=== PATIENT | male | born 1970 | race Caucasian/White ===

== ENCOUNTER 2017-12-28 18:20 | Emergency (ER) | payer SELFPAY ==
[2017-12-28] MEDS ORDERED: Sodium Chloride 0.9% 10 ML Syringe FLUSH PRN (18:27)
[2017-12-28] MEDS ORDERED: Metoprolol Tartrate 50 MG Tab PO ONE (18:29)
[2017-12-28] MEDS ORDERED: Aspirin 81 MG Tab.Chew PO ONE (18:29)
--- NOTE | 2017-12-28 18:31 | EDM.PDOC ---
ED HPI GENERAL MEDICAL PROBLEM - General Chief Complaint: Chest Pain Stated Complaint: CHEST PRESSURE,ELEVATED PULSE Time Seen by Provider: 12/28/17 18:20 Source of Information: Reports: Patient History Limitations: Reports: Other (incomplete medical records, new in area. ) - History of Present Illness INITIAL COMMENTS - FREE TEXT/NARRATIVE: 47 yo male presents with symptomatic tachycardia since about 9 am today. This started abruptly. He has a little chest tightness, but mostly he says it feels like he is running. Has a pHx of HTN and tachycardia controlled with lisinopril and metoprolol. He has not missed any of his meds. Did notice some tenderness to the back of his L thigh about an hour ago. No distal leg swelling or calf pain. No SOB at rest, but does have mild SMITH today. No recent vomiting, diarrhea, black stools, or anemia. Has not had his thyroid checked in the past 6 mos. FHx of CAD. Onset: Today Onset Date: 12/28/17 Onset Time: 09:00 Duration: Hour(s):, Constant Location: Reports: Chest, Lower Extremity, Left (posterior thigh) Quality: Reports: Other (mild chest tightness.) Severity: Mild Improves with: Reports: None Worsens with: Reports: Movement Context: Reports: Other (hx of tachycardia controlled with low dose metoprolol. No missed meds. 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 (see below) (usual meds only.) Chest Pain Score (Numeric/FACES): 8 - Related Data Allergies Allergy/AdvReac Type Severity Reaction Status Date / Time codeine Allergy Itching Verified 12/28/17 18:25 Home Meds: Home Meds Amitriptyline [Elavil] 50 mg PO DAILY 12/28/17 [History] Cholecalciferol (Vitamin D3) [Vitamin D3] 2,000 unit PO DAILY 12/28/17 [History] Fish Oil/DHA/EPA [Fish Oil 1,200 MG] 1 tab PO DAILY 12/28/17 [History] Gabapentin [Neurontin] 300 mg PO TID 12/28/17 [History] Lisinopril 20 mg PO DAILY 12/28/17 [History] Melatonin 10 mg PO BEDTIME 12/28/17 [History] Metoprolol Succinate 25 mg PO DAILY 12/28/17 [History] Simvastatin [Zocor] 40 mg PO DAILY 12/28/17 [History] Tamsulosin [Flomax] 0.4 mg PO DAILY 12/28/17 [History] ED ROS GENERAL - Review of Systems Review Of Systems: See Below Constitutional: Reports: No Symptoms HEENT: Reports: No Symptoms Respiratory: Reports: Shortness of Breath (with exertion only) Cardiovascular: Reports: Chest Pain (mild tightness.) Endocrine: Reports: No Symptoms GI/Abdominal: Reports: Other (Hx of anal fissure.) : Reports: No Symptoms Musculoskeletal: Reports: No Symptoms Skin: Reports: No Symptoms Neurological: Reports: No Symptoms Psychiatric: Reports: No Symptoms ED EXAM, GENERAL - Physical Exam Exam: See Below Exam Limited By: No Limitations General Appearance: Alert, WD/WN, No Apparent Distress, Obese Eye Exam: Bilateral Eye: EOMI, Normal Inspection, PERRL Ears: Normal External Exam, Normal Canal, Hearing Grossly Normal, Normal TMs Ear Exam: Bilateral Ear: Auricle Normal, Canal Normal, TM normal Nose: Normal Inspection, Normal Mucosa, No Blood Throat/Mouth: Normal Inspection, Normal Lips, Normal Oropharynx, Normal Voice, No Airway Compromise Head: Atraumatic, Normocephalic Neck: Normal Inspection, Supple, Non-Tender Respiratory/Chest: No Respiratory Distress, Lungs Clear, Normal Breath Sounds, No Accessory Muscle Use Cardiovascular: Regular Rate, Rhythm, Tachycardia GI/Abdominal: Normal Bowel Sounds, Soft, Non-Tender, No Distention Back Exam: Normal Inspection. No: CVA Tenderness (R), CVA Tenderness (L) Extremities: Normal Inspection, Normal Range of Motion, Non-Tender, No Pedal Edema Neurological: Alert, Oriented, CN II-XII Intact, Normal Cognition, No Motor/ Sensory Deficits Psychiatric: Normal Affect, Normal Mood Skin Exam: Warm, Dry, Intact, Normal Color, No Rash Lymphatic: No Adenopathy EKG INTERPRETATION EKG Date: 12/28/17 Time: 18:15 Rhythm: NSR Rate (Beats/Min): 123 [place]: Normal P-Wave: Present QRS: Normal ST-T: Normal QT: Normal Comparison: NA - No Prior EKG Course - Vital Signs Text/Narrative:: HR down to 88 and BP down to 130/90. Feeling back to normal. Last Recorded V/S: Last Vital Signs Temp 36.6 C 12/28/17 18:29 Pulse 106 H 12/28/17 19:38 Resp 11 L 12/28/17 19:38 BP 131/90 12/28/17 19:56 Pulse Ox 96 12/28/17 18:29 - Orders/Labs/Meds Orders: Active Orders 24 hr Category Date Time Status Cardiac Monitoring [RC] .As Directed Care 12/28/17 18:27 Active EKG Documentation Completion [RC] ASDIRECTED Care 12/28/17 18:27 Active UA W/MICROSCOPIC [URIN] Stat Lab 12/28/17 18:47 Ordered Sodium Chloride 0.9% [Saline Flush] Med 12/28/17 18:27 Active 10 ml FLUSH ASDIRECTED PRN Saline Lock Insert [OM.PC] Routine Oth 12/28/17 18:27 Ordered EKG 12 Lead [EK] Routine Ther 12/28/17 18:27 Ordered Medication Orders Sodium Chloride (Saline Flush) 10 ml FLUSH ASDIRECTED PRN PRN Reason: Keep Vein Open Last Admin: 12/28/17 18:46 Dose: 10 ml Labs: Laboratory Tests 12/28/17 12/28/17 12/28/17 Range/Units 18:31 18:31 18:31 WBC 9.2 (4.5-11.0) K/uL RBC 5.14 (4.30-5.90) M/uL Hgb 15.3 H (12.0-15.0) g/dL Hct 43.4 (40.0-54.0) % MCV 84 (80-98) fL MCH 30 (27-31) pg MCHC 35 (32-36) % Plt Count 317 (150-400) K/uL D-Dimer, Quantitative < 100 (0.0-400.0) ng/mL Sodium 141 (140-148) mmol/L Potassium 4.1 (3.6-5.2) mmol/L Chloride 103 (100-108) mmol/L Carbon Dioxide 27 (21-32) mmol/L Anion Gap 10.6 (5.0-14.0) mmol/L BUN 9 (7-18) mg/dL Creatinine 1.2 (0.8-1.3) mg/dL Est Cr Clr Drug Dosing 79.31 mL/min Estimated GFR (MDRD) > 60 (>60) Glucose 119 H (74-106) mg/dL Calcium 8.8 (8.5-10.1) mg/dL Troponin I < 0.017 (0.000-0.056) ng/mL TSH, Ultra Sensitive (0.358-3.740) uIU/mL Urine Color Urine Appearance Urine pH (4.5-8.0) Ur Specific [place] (1.008-1.030) Urine Protein (NEGATIVE) mg/dL Urine Glucose (UA) (NEGATIVE) mg/dL Urine Ketones (NEGATIVE) mg/dL Urine Occult Blood (NEGATIVE) Urine Nitrite (NEGAITVE) Urine Bilirubin (NEGATIVE) Urine Urobilinogen (NORMAL) mg/dL Ur Leukocyte Esterase (NEGATIVE) Urine RBC (0-5) Urine WBC (0-5) Ur Epithelial Cells Amorphous Sediment Urine Bacteria Urine Mucus 12/28/17 12/28/17 Range/Units 18:31 18:47 WBC (4.5-11.0) K/uL RBC (4.30-5.90) M/uL Hgb (12.0-15.0) g/dL Hct (40.0-54.0) % MCV (80-98) fL MCH (27-31) pg MCHC (32-36) % Plt Count (150-400) K/uL D-Dimer, Quantitative (0.0-400.0) ng/mL Sodium (140-148) mmol/L Potassium (3.6-5.2) mmol/L Chloride (100-108) mmol/L Carbon Dioxide (21-32) mmol/L Anion Gap (5.0-14.0) mmol/L BUN (7-18) mg/dL Creatinine (0.8-1.3) mg/dL Est Cr Clr Drug Dosing mL/min Estimated GFR (MDRD) (>60) Glucose (74-106) mg/dL Calcium (8.5-10.1) mg/dL Troponin I (0.000-0.056) ng/mL TSH, Ultra Sensitive 2.714 (0.358-3.740) uIU/mL Urine Color Yellow Urine Appearance Clear Urine pH 5.0 (4.5-8.0) Ur Specific [place] 1.010 (1.008-1.030) Urine Protein Negative (NEGATIVE) mg/dL Urine Glucose (UA) Normal (NEGATIVE) mg/dL Urine Ketones Negative (NEGATIVE) mg/dL Urine Occult Blood Negative (NEGATIVE) Urine Nitrite Negative (NEGAITVE) Urine Bilirubin Negative (NEGATIVE) Urine Urobilinogen Normal (NORMAL) mg/dL Ur Leukocyte Esterase Negative (NEGATIVE) Urine RBC 0-5 (0-5) Urine WBC 0-5 (0-5) Ur Epithelial Cells Rare Amorphous Sediment Not seen Urine Bacteria Not seen Urine Mucus Not seen Meds: Medications Generic Name Dose Route Start Last Admin Trade Name Freq PRN Reason Stop Dose Admin Sodium Chloride 10 ml 12/28/17 18:27 12/28/17 18:46 Saline Flush FLUSH 10 ml ASDIRECTED PRN Administration Keep Vein Open Discontinued Medications Generic Name Dose Route Start Last Admin Trade Name Freq PRN Reason Stop Dose Admin Aspirin 324 mg 12/28/17 18:29 12/28/17 18:46 Aspirin PO 12/28/17 18:30 324 mg ONETIME ONE Administration Lisinopril 20 mg 12/28/17 19:40 12/28/17 19:56 Prinivil PO 12/28/17 19:41 20 mg ONETIME ONE Administration Metoprolol Tartrate 50 mg 12/28/17 18:29 12/28/17 18:46 Lopressor PO 12/28/17 18:30 50 mg ONETIME ONE Administration Departure - Departure Time of Disposition: 20:10 Disposition: Home, Self-Care 01 Condition: Good Clinical Impression: Tachycardia HTN (hypertension) Qualifiers: Hypertension type: unspecified Qualified Code(s): I10 - Essential (primary) hypertension Referrals: PCP,None [Primary Care Provider] - Forms: ED Department Discharge - My Orders Last 24 Hours: My Active Orders 12/28/17 18:27 Cardiac Monitoring [RC] .As Directed EKG Documentation Completion [RC] ASDIRECTED Sodium Chloride 0.9% [Saline Flush] 10 ml FLUSH ASDIRECTED PRN Saline Lock Insert [OM.PC] Routine EKG 12 Lead [EK] Routine 12/28/17 18:47 UA W/MICROSCOPIC [URIN] Stat - Assessment/Plan Last 24 Hours: My Active Orders 12/28/17 18:27 Cardiac Monitoring [RC] .As Directed EKG Documentation Completion [RC] ASDIRECTED Sodium Chloride 0.9% [Saline Flush] 10 ml FLUSH ASDIRECTED PRN Saline Lock Insert [OM.PC] Routine EKG 12 Lead [EK] Routine 12/28/17 18:47 UA W/MICROSCOPIC [URIN] Stat
[2017-12-28] MEDS ORDERED: Lisinopril 10 MG Tab PO ONE (19:40)
== END 2017-12-28 20:27 | disposition home or self-care (01) ==
LOC: JP.ED 18:20
DX: R00.0 Tachycardia, unspecified (principal); I10 Essential (primary) hypertension; Z88.5 Allergy status to narcotic agent; Z79.899 Other long term (current) drug therapy
CPT/HCPCS: 36415; 80048; 81001; 84443; 84484; 85027; 85379; 93005; 99284; 99285; A9270; J7050

== ENCOUNTER 2018-04-24 15:57 | Emergency (ER) | payer SELFPAY ==
[2018-04-24] MEDS ORDERED: Ketorolac 30 MG/ML SDV IM ONE (17:00)
--- NOTE | 2018-04-24 17:06 | EDM.PDOC ---
ED HPI GENERAL MEDICAL PROBLEM - General Chief Complaint: ENT Problem Stated Complaint: illness Time Seen by Provider: 04/24/18 16:52 Source of Information: Reports: Patient, Family, RN Notes Reviewed History Limitations: Reports: No Limitations - History of Present Illness INITIAL COMMENTS - FREE TEXT/NARRATIVE: 47-year-old gentleman presents to the emergency department day complaint of facial swelling along the left side of his jaw and neck. He states had fevers on and off for the last couple days had some ear pain as well denies any dental tenderness no difficulty swallowing no difficulty breathing has use Tylenol for pain control Left Face Pain Score (Numeric/FACES): 6 - Related Data Allergies Allergy/AdvReac Type Severity Reaction Status Date / Time codeine Allergy Itching Verified 12/28/17 18:25 Home Meds: Home Meds Amitriptyline [Elavil] 50 mg PO DAILY 12/28/17 [History] Cholecalciferol (Vitamin D3) [Vitamin D3] 2,000 unit PO DAILY 12/28/17 [History] Fish Oil/DHA/EPA [Fish Oil 1,200 MG] 1 tab PO DAILY 12/28/17 [History] Gabapentin [Neurontin] 300 mg PO TID 12/28/17 [History] Lisinopril 20 mg PO DAILY 12/28/17 [History] Melatonin 10 mg PO BEDTIME 12/28/17 [History] Metoprolol Succinate 25 mg PO DAILY 12/28/17 [History] Simvastatin [Zocor] 40 mg PO DAILY 12/28/17 [History] Tamsulosin [Flomax] 0.4 mg PO DAILY 12/28/17 [History] Past Medical History Cardiovascular History: Reports: High Cholesterol, Hypertension, Other (See Below) Other Cardiovascular History: tachycardia Other Respiratory History: barrfets esoughigitis Genitourinary History: Reports: Prostate Disorder Musculoskeletal History: Reports: Back Pain, Chronic, Fracture Endocrine/Metabolic History: Reports: Hyperthyroidism Dermatologic History: Reports: Eczema - Past Surgical History Other GI Surgeries/Procedures: uma Other Musculoskeletal Surgeries/Procedures:: neck and back pain. Social & Family History - Tobacco Use Smoking Status *Q: Heavy Tobacco Smoker Years of Tobacco use: 20 Packs/Tins Daily: 0.5 - Caffeine Use Caffeine Use: Reports: Coffee, Soda - Recreational Drug Use Recreational Drug Use: No ED ROS ENT - Review of Systems Review Of Systems: See Below Constitutional: Reports: Fever, Chills HEENT: Reports: Other (Facial pain) Respiratory: Reports: No Symptoms Cardiovascular: Reports: No Symptoms GI/Abdominal: Reports: No Symptoms : Reports: No Symptoms Musculoskeletal: Reports: No Symptoms Skin: Reports: No Symptoms Neurological: Reports: No Symptoms ED EXAM, ENT - Physical Exam Exam: See Below Text/Narrative:: Mouth mucosa is moist and pink there is no erythema or exudate noted in soft palate tongue is midline uvula is midline, there is facial swelling which be in appreciated on the left side over the parotid gland this extends down below the jaw is tender along the parotid as well as underneath the jaw and into the neck I cannot appreciate any specific lymphadenopathy on the left side there is no tenderness on the right side. Exam Limited By: No Limitations General Appearance: Alert, WD/WN, No Apparent Distress Ears: Normal External Exam, Normal Canal, Hearing Grossly Normal, Normal TMs Respiratory/Chest: No Respiratory Distress, Lungs Clear, Normal Breath Sounds, No Accessory Muscle Use Cardiovascular: Regular Rate, Rhythm, No Murmur Course - Vital Signs Last Recorded V/S: Last Vital Signs Temp 97.1 F 04/24/18 16:41 Pulse 82 04/24/18 16:41 Resp 16 04/24/18 16:41 BP 133/88 04/24/18 16:41 Pulse Ox 98 04/24/18 16:41 - Orders/Labs/Meds Orders: Active Orders 24 hr Category Date Time Status Ketorolac [Toradol] Med 04/24/18 17:00 Once 30 mg IM ONETIME ONE Medication Orders Ketorolac Tromethamine (Toradol) 30 mg IM ONETIME ONE Stop: 04/24/18 17:01 Meds: Medications Generic Name Dose Route Start Last Admin Trade Name Freq PRN Reason Stop Dose Admin Ketorolac Tromethamine 30 mg 04/24/18 17:00 Toradol IM 04/24/18 17:01 ONETIME ONE Departure - Departure Time of Disposition: 17:05 Disposition: Home, Self-Care 01 Condition: Good Clinical Impression: Facial swelling - Discharge Information Referrals: PCP,None [Primary Care Provider] - Additional Instructions: Take full course of antibiotics, continue to use Tylenol as needed for pain control, Please followup with your primary care provider in 3-5 days if not better, please call return to the emergency department with worsening of symptoms. - My Orders Last 24 Hours: My Active Orders 04/24/18 17:00 Ketorolac [Toradol] 30 mg IM ONETIME ONE - Assessment/Plan Last 24 Hours: My Active Orders 04/24/18 17:00 Ketorolac [Toradol] 30 mg IM ONETIME ONE Plan: Assessment Acuity = acute Site and laterality = facial swelling Etiology = suspicious for dental abscess Manifestations = none Location of injury = Home Lab values = none Plan Started on antibiotics of clindamycin 300 mg 4 times a day for the next 10 days , Toradol injection given for pain control and follow-up with his primary care in the next 3-5 days if no improvement This note was dictated using [employer] voice recognition software please call with any questions on syntax or grammar.
== END 2018-04-24 17:11 | disposition home or self-care (01) ==
LOC: JP.ED 15:57
DX: R22.0 Localized swelling, mass and lump, head (principal); I10 Essential (primary) hypertension; E05.90 Thyrotoxicosis, unspecified without thyrotoxic crisis or storm; F17.210 Nicotine dependence, cigarettes, uncomplicated; Z88.5 Allergy status to narcotic agent; Z79.899 Other long term (current) drug therapy
CPT/HCPCS: 96372; 99283; J1885

== ENCOUNTER 2018-12-20 13:14 | Emergency (ER) | payer MEDICAID ==
--- NOTE | 2018-12-20 14:51 | CRLCR ---
INDICATION: Back pain after slipping today. Lumbar spine fusion 1 week ago. TECHNIQUE: Three views of the lumbar spine. COMPARISON: None. FINDINGS: Five lumbar vertebral bodies with a slight rotatory lumbar curve convex towards the right. Postsurgical change from lumbosacral spine fusion with bilateral pedicle screws at L5 and S1. Intervertebral fusion device at L5. Mild spurring anterosuperior corner of L4. The included sacrum and coccyx are within normal limits. IMPRESSION: 1. Intact L5-S1 posterior lumbosacral spine fusion. 2. Mild spurring anterosuperior corner of L4. 3. No acute fracture of the lumbar spine. Dictated by Lorenzo Horvath MD @ Dec 20 2018 2:46PM Signed by Dr. Lorenzo Horvath @ Dec 20 2018 2:49PM
--- NOTE | 2018-12-20 15:05 | EDM.PDOC ---
ED HPI GENERAL MEDICAL PROBLEM - General Chief Complaint: Back Pain or Injury Stated Complaint: HAD BACK SURGERY LAST NIGHT Time Seen by Provider: 12/20/18 14:10 Source of Information: Reports: Patient, Family History Limitations: Reports: No Limitations - History of Present Illness INITIAL COMMENTS - FREE TEXT/NARRATIVE: 48-year-old male who just got home last night from back surgery slipped on the bottom of the stairs turning his back and gently falling down to the ground. Since that time he's had increased pain in his right hip and leg and right anterior abdomen. No neuro deficits, he is walking and ambulating with the same strength as previous. This morning the increased discomfort was causing him concern so he called neurosurgery and they recommended he come in to be seen. He appears comfortable. Onset: Sudden (His fall was 12 hours ago at home) Associated Symptoms: Reports: Other (No incontinence). Denies: Chest Pain, Malaise, Shortness of Breath, Syncope, Weakness Lower Back Pain Score (Numeric/FACES): 7 - Related Data Allergies Allergy/AdvReac Type Severity Reaction Status Date / Time codeine Allergy Itching Verified 12/20/18 14:00 fentanyl Allergy Itching Verified 12/20/18 14:00 latex Allergy Rash Verified 12/20/18 14:00 tramadol Allergy Itching Verified 12/20/18 14:00 tromantadine Allergy Itching Verified 12/20/18 14:00 Home Meds: Home Meds Amitriptyline [Elavil] 50 mg PO BID 12/28/17 [History] Cholecalciferol (Vitamin D3) [Vitamin D3] 2,000 unit PO DAILY 12/28/17 [History] Gabapentin [Neurontin] 800 mg PO TID 12/28/17 [History] Lisinopril 20 mg PO DAILY 12/28/17 [History] Melatonin 10 mg PO BEDTIME 12/28/17 [History] Metoprolol Succinate 25 mg PO DAILY 12/28/17 [History] Simvastatin [Zocor] 40 mg PO DAILY 12/28/17 [History] Tamsulosin [Flomax] 0.4 mg PO DAILY 12/28/17 [History] Citalopram [Citalopram HBr] 20 mg PO DAILY 12/20/18 [History] Polyethylene Glycol 3350 [Clearlax] 1 dose PO DAILY 12/20/18 [History] Varenicline [Chantix] 1 mg PO DAILY 12/20/18 [History] hydrOXYzine HCl [hydrOXYzine] 50 mg IM Q6H 12/20/18 [History] metFORMIN [Glucophage] 500 mg PO BIDMEALS 12/20/18 [History] oxyCODONE [Oxycodone HCl] 10 mg PO Q4HR 12/20/18 [History] tiZANidine HCl [Zanaflex] 2 mg PO QID 12/20/18 [History] Past Medical History Cardiovascular History: Reports: High Cholesterol, Hypertension, Other (See Below) Other Cardiovascular History: tachycardia Other Respiratory History: Merchant's esoughigitis Gastrointestinal History: Reports: Chronic Constipation, Irritable Bowel Syndrome, Other (See Below) Other Gastrointestinal History: barrets esophagus Genitourinary History: Reports: Prostate Disorder Musculoskeletal History: Reports: Back Pain, Chronic, Fracture, Neck Pain, Chronic, Osteoarthritis Other Musculoskeletal History: disc degenrative disease Neurological History: Reports: Migraines Psychiatric History: Reports: Depression Endocrine/Metabolic History: Reports: Diabetes, Type II, Hyperthyroidism, Osteopenia Dermatologic History: Reports: Eczema - Past Surgical History GI Surgical History: Reports: Cholecystectomy, Kurt Fundoplication Other GI Surgeries/Procedures: hiatal hernis rerpair Neurological Surgical History: Reports: C-Spine, Laminectomy, Spinal Fusion Other Neurological Surgeries/Procedures: lumbar surger dec 13 2018. neck surgery 5 weeks ago Social & Family History - Tobacco Use Smoking Status *Q: Former Smoker Used Tobacco, but Quit: Yes Month/Year Tobacco Last Used: 7 months ago - Caffeine Use Caffeine Use: Reports: Coffee, Soda - Recreational Drug Use Recreational Drug Use: No Drug Use in Last 12 Months: No ED ROS GENERAL - Review of Systems Review Of Systems: See Below Constitutional: Denies: Fever, Chills Respiratory: Denies: Shortness of Breath GI/Abdominal: Reports: Abdominal Pain (Right-sided discomfort) Skin: Denies: Rash Neurological: Reports: Other (Some increased pain radiating down the right leg) . Denies: Paresthesia ED EXAM,LOWER BACK PAIN/INJURY - Physical Exam Exam: See Below Exam Limited By: No Limitations General Appearance: Alert, No Apparent Distress Respiratory/Chest: No Respiratory Distress, Lungs Clear Cardiovascular: Regular Rate, Rhythm Back Exam: Other (Bandages on his lower back look excellent, no drainage, leakage or redness) Extremities: Other (Normal passive range of motion of both lower extremities, some increased pulling and pain of the lower back with flexion of the right hip) Course - Vital Signs Last Recorded V/S: Last Vital Signs Temp 97.1 F 12/20/18 13:56 Pulse 91 12/20/18 13:56 Resp 18 12/20/18 13:56 BP 128/79 12/20/18 13:56 Pulse Ox 95 12/20/18 13:56 - Re-Assessments/Exams Free Text/Narrative Re-Assessment/Exam: 12/20/18 15:03 3 view lumbar spine x-ray was obtained, neurosurgery in [place] compared the x- ray to postoperative x-rays and they appear excellent and stable. Patient was reassured. Departure - Departure Time of Disposition: 15:20 Disposition: Home, Self-Care 01 Condition: Good Clinical Impression: Low back pain Qualifiers: Chronicity: chronic Back pain laterality: right Sciatica presence: without sciatica Qualified Code(s): M54.5 - Low back pain - Discharge Information Instructions: Chronic Back Pain, [id number] Referrals: Kerry Sotelo PA [Primary Care Provider] - Forms: ED Department Discharge Care Plan Goals: Continue your current medications, activity as tolerated and recommended by your surgeon. Follow up as scheduled unless you develop increased symptoms or other concerns, return to the emergency room for reevaluation.
== END 2018-12-20 15:20 | disposition home or self-care (01) ==
LOC: JP.ED 13:14
DX: M54.5 Low back pain (principal); E78.00 Pure hypercholesterolemia, unspecified; I10 Essential (primary) hypertension; E11.9 Type 2 diabetes mellitus without complications; F32.9 Major depressive disorder, single episode, unspecified; E05.90 Thyrotoxicosis, unspecified without thyrotoxic crisis or storm; Z79.899 Other long term (current) drug therapy; Z87.891 Personal history of nicotine dependence; Z79.84 Long term (current) use of oral hypoglycemic drugs
CPT/HCPCS: 72100; 99283-25

== ENCOUNTER 2020-08-05 09:16 | Emergency (ER) | payer MEDICAID ==
[2020-08-05] MEDS ORDERED: Ketorolac 30 MG/ML SDV IVPUSH ONE (09:52)
[2020-08-05] MEDS ORDERED: Sodium Chloride 0.9% 1,000 ML IV SCH (10:00)
--- NOTE | 2020-08-05 10:13 | EDM.PDOC ---
ED HPI GENERAL MEDICAL PROBLEM - General Chief Complaint: Headache Stated Complaint: COVID SYMPTOMS Time Seen by Provider: 08/05/20 09:50 Source of Information: Reports: Patient History Limitations: Reports: No Limitations - History of Present Illness INITIAL COMMENTS - FREE TEXT/NARRATIVE: 50-year-old male arrives with 3 days of generalized myalgias, worsening headache, and intermittent abdominal pain. His main concern is his persistent and worsening headache. He has had no trauma, no fevers or chills, some mild nausea but no vomiting. No visual complaints other than some mild photophobia. He does have chronic headaches but never this bad, it was not sudden onset. He says he hurts a lot around his eyes, and on the back of his head. No rashes, denies shortness of breath or chest pain but does have a dry throat and feels thirsty. Onset: Gradual Duration: Day(s): (3 days) Location: Reports: Head, Generalized (He not only has a headache but generalized muscle pain diffusely) Occipital Headache Pain Score (Numeric/FACES): 8 - Related Data Allergies Allergy/AdvReac Type Severity Reaction Status Date / Time codeine Allergy Itching Verified 12/20/18 14:00 fentanyl Allergy Itching Verified 12/20/18 14:00 latex Allergy Rash Verified 12/20/18 14:00 tramadol Allergy Itching Verified 12/20/18 14:00 tromantadine Allergy Itching Verified 12/20/18 14:00 Home Meds: Home Meds Amitriptyline [Elavil] 50 mg PO BID 12/28/17 [History] Cholecalciferol (Vitamin D3) [Vitamin D3] 2,000 unit PO DAILY 12/28/17 [History] Gabapentin [Neurontin] 800 mg PO TID 12/28/17 [History] Lisinopril 20 mg PO DAILY 12/28/17 [History] Melatonin 10 mg PO BEDTIME 12/28/17 [History] Metoprolol Succinate 25 mg PO DAILY 12/28/17 [History] Simvastatin [Zocor] 40 mg PO DAILY 12/28/17 [History] Tamsulosin [Flomax] 0.4 mg PO DAILY 12/28/17 [History] Citalopram [Citalopram HBr] 20 mg PO DAILY 12/20/18 [History] Varenicline [Chantix] 1 mg PO DAILY 12/20/18 [History] metFORMIN [Glucophage] 500 mg PO BIDMEALS 12/20/18 [History] polyethylene glycoL 3350 [Clearlax] 1 dose PO DAILY 12/20/18 [History] Past Medical History Cardiovascular History: Reports: High Cholesterol, Hypertension, Other (See Below) Other Cardiovascular History: tachycardia Other Respiratory History: Merchant's esoughigitis Gastrointestinal History: Reports: Chronic Constipation, Irritable Bowel Syndrome, Other (See Below) Other Gastrointestinal History: barrets esophagus Genitourinary History: Reports: Prostate Disorder Musculoskeletal History: Reports: Back Pain, Chronic, Fracture, Neck Pain, Chronic, Osteoarthritis Other Musculoskeletal History: disc degenrative disease Neurological History: Reports: Migraines Psychiatric History: Reports: Depression Endocrine/Metabolic History: Reports: Diabetes, Type II, Hyperthyroidism, Osteopenia Dermatologic History: Reports: Eczema - Infectious Disease History Infectious Disease History: Reports: Chicken Pox - Past Surgical History GI Surgical History: Reports: Cholecystectomy, Kurt Fundoplication Other GI Surgeries/Procedures: hiatal hernis rerpair Neurological Surgical History: Reports: C-Spine, Laminectomy, Spinal Fusion Other Neurological Surgeries/Procedures: lumbar surger dec 13 2018. neck surgery 5 weeks ago Other Musculoskeletal Surgeries/Procedures:: neck and back pain. Social & Family History - Tobacco Use Tobacco Use Status *Q: Former Tobacco User Used Tobacco, but Quit: Yes Month/Year Tobacco Last Used: many years ago - Caffeine Use Caffeine Use: Reports: Coffee, Soda - Recreational Drug Use Recreational Drug Use: No ED ROS GENERAL - Review of Systems Review Of Systems: See Below Constitutional: Reports: Malaise. Denies: Fever, Chills HEENT: Reports: Throat Pain Respiratory: Denies: Shortness of Breath, Cough, Sputum Cardiovascular: Reports: Chest Pain (Diffuse chest and abdominal discomfort as well as extremities, all muscular type pain) GI/Abdominal: Reports: Abdominal Pain (Recurring and chronic) : Reports: No Symptoms Musculoskeletal: Reports: Muscle Pain, Muscle Stiffness Skin: Reports: No Symptoms Neurological: Reports: Headache. Denies: Confusion, Dizziness, Seizure, Syncope, Trouble Speaking, Weakness ED EXAM, GENERAL - Physical Exam Exam: See Below Exam Limited By: No Limitations General Appearance: Alert, No Apparent Distress (Looks uncomfortable but not distressed) Eye Exam: Bilateral Eye: Normal Inspection, PERRL Head: Other (Patient reacts with significant discomfort with even light palpation of the temporalis muscles especially on the right side, also in the posterior scalp) Neck: Other (No meningeal findings, some paracervical muscle tenderness to palpation) Respiratory/Chest: No Respiratory Distress, Lungs Clear Cardiovascular: Regular Rate, Rhythm GI/Abdominal: Normal Bowel Sounds, Soft, Other (Diffuse superficial tenderness to palpation across the upper abdomen, no focal guarding or rebound) Neurological: Alert, Oriented, No Motor/Sensory Deficits Psychiatric: Normal Affect, Normal Mood Skin Exam: Warm, Dry Course - Vital Signs Last Recorded V/S: Last Vital Signs Temp 99.4 F 08/05/20 09:36 Pulse 100 08/05/20 09:36 Resp 18 08/05/20 09:36 BP 148/86 H 08/05/20 09:36 Pulse Ox 98 08/05/20 09:36 - Orders/Labs/Meds Labs: Laboratory Tests 08/05/20 08/05/20 08/05/20 Range/Units 10:00 10:00 10:07 WBC 6.2 (4.5-11.0) K/uL RBC 4.78 (4.30-5.90) M/uL Hgb 14.1 (12.0-15.0) g/dL Hct 41.8 (40.0-54.0) % MCV 87 (80-98) fL MCH 30 (27-31) pg MCHC 34 (32-36) % Plt Count 239 (150-400) K/uL Neut % (Auto) 64 (36-66) % Lymph % (Auto) 24 (24-44) % [place] % (Auto) 11 H (2-6) % Eos % (Auto) 1 L (2-4) % Baso % (Auto) 1 (0-1) % Sodium 130 L (140-148) mmol/L Potassium 4.2 (3.6-5.2) mmol/L Chloride 96 L (100-108) mmol/L Carbon Dioxide 28 (21-32) mmol/L Anion Gap 10.2 (5.0-14.0) mmol/L BUN 10 (7-18) mg/dL Creatinine 1.3 (0.8-1.3) mg/dL Est Cr Clr Drug Dosing 70.79 mL/min Estimated GFR (MDRD) 58 L (>60) Glucose 119 H (74-106) mg/dL Calcium 9.0 (8.5-10.1) mg/dL Total Bilirubin 0.6 (0.2-1.0) mg/dL AST 50 H (15-37) U/L ALT 81 H (12-78) U/L Alkaline Phosphatase 85 (46-116) U/L C-Reactive Protein 1.63 H (0.0-0.3) mg/dL Total Protein 7.0 (6.4-8.2) g/dL Albumin 3.7 (3.4-5.0) g/dL Globulin 3.3 (2.3-3.5) g/dL Albumin/Globulin Ratio 1.1 L (1.2-2.2) SARS CoV-2 RNA Rapid NICHOLAS Negative Meds: Medications Discontinued Medications Generic Name Dose Route Start Last Admin Trade Name Freq PRN Reason Stop Dose Admin Hydromorphone HCl 0.5 mg 08/05/20 10:40 08/05/20 10:45 Dilaudid IVPUSH 08/05/20 10:41 0.5 mg ONETIME ONE Administration Sodium Chloride 1,000 mls @ 1,000 mls/hr 08/05/20 10:00 08/05/20 10:05 Normal Saline IV 1,000 mls/hr ASDIRECTED SHEKHAR Administration Ketorolac Tromethamine 30 mg 08/05/20 09:52 08/05/20 10:05 Toradol IVPUSH 08/05/20 09:53 30 mg ONETIME ONE Administration - Re-Assessments/Exams Free Text/Narrative Re-Assessment/Exam: 08/05/20 10:12 IV was started, patient was given 30 mg of IV Toradol and CBC, CRP and CMP were obtained. Also a coronavirus test was obtained. 08/05/20 10:48 Coronavirus was negative, patient really did not get much relief from the IV Toradol. Labs look excellent, CBC was normal, CRP just slightly elevated at 1.6 and CMP generally normal. Patient was then given 0.5 mg of IV Dilaudid while we waited for the rest and fluids to run in. 08/05/20 11:05 Patient was very relieved that he was Covid negative and felt quite a bit better after the fluids. He was discharged with 10 hydrocodone for extra pain control and will return if worsening over the next 48 to 72 hours. Departure - Departure Time of Disposition: 11:35 Disposition: Home, Self-Care 01 Clinical Impression: Tension-type headache, Dehydration, mild - Discharge Information Instructions: Dehydration, Adult, [id number] Referrals: Kerry Sotelo PA [Primary Care Provider] - Forms: ED Department Discharge Care Plan Goals: Increase diet and activity as tolerated and try to stay hydrated with plenty of fluids. Use hydrocodone for extra pain control if needed over the next couple of days, and return anytime if worsening such as persistent fever, worsening headache, shortness of breath or other concerns. Sepsis Event Note (ED) - Evaluation Sepsis Screening Result: No Definite Risk - Focused Exam Vital Signs: Vital Signs Temp Pulse Resp BP Pulse Ox 08/05/20 09:36 99.4 F 100 18 148/86 H 98
[2020-08-05] MEDS ORDERED: HYDROmorphone 0.5 MG/0.5 ML Syringe IVPUSH ONE (10:40)
== END 2020-08-05 11:30 | disposition home or self-care (01) ==
LOC: JP.ED 09:16
DX: E86.0 Dehydration (principal); G44.209 Tension-type headache, unspecified, not intractable; E78.00 Pure hypercholesterolemia, unspecified; I10 Essential (primary) hypertension; G43.909 Migraine, unspecified, not intractable, without status migrainosus; F32.9 Major depressive disorder, single episode, unspecified; E11.9 Type 2 diabetes mellitus without complications; Z87.891 Personal history of nicotine dependence; Z88.5 Allergy status to narcotic agent; Z88.6 Allergy status to analgesic agent; Z91.040 Latex allergy status; Z88.8 Allergy status to other drugs, medicaments and biological substances; Z79.899 Other long term (current) drug therapy; Z20.828 Contact with and (suspected) exposure to other viral communicable diseases
CPT/HCPCS: 36415; 80053; 85025; 86140; 87635; 96374; 96375; 99284; J1170; J1885; J7030; U0002

== ENCOUNTER 2020-10-13 06:40 | Day surgery (SDC) | payer MEDICAID ==
[~2020-10-13 06:40] MED LIST: Sodium Chloride 0.9% 1,000 ML IV SCH
[2020-10-13] MEDS ORDERED: Sodium Chloride 0.9% 1,000 ML IV SCH (07:00)
[2020-10-13] MEDS ORDERED: Midazolam 1 MG/ML 2 ML SDV ONE (07:14)
[2020-10-13] MEDS ORDERED: Propofol 200 MG/20 ML SDV ONE ×2 (07:14→08:00)
--- NOTE | 2020-10-13 11:09 | OR ---
DATE OF PROCEDURE: 10/13/2020 SURGEON: Zion Amin MD PROCEDURE: Colonoscopy. FINDINGS: Sigmoid colon polyp, approximately 5 mm, completely removed using cold biopsy forceps. COMPLICATIONS: None. BINDING FOLDER MACHINE: None. ANESTHESIA: MAC. PREOPERATIVE DIAGNOSIS: Screening colonoscopy. POSTOPERATIVE DIAGNOSIS: Screening colonoscopy. RISKS: Risks, benefits, alternatives, and limitations, including, but not limited to infection, bleeding, perforation, false positives, false negatives. PROCEDURE IN DETAIL: The patient was placed in left lateral decubitus position. Digital rectal exam was performed without abnormality. Scope was introduced and advanced atraumatically to the ileocecal valve. A photo was taken of this. Scope was brought back to the ascending, transverse, descending colon, and retroflexed. The aforementioned polyp was identified and removed using hot snare wire device. No abnormalities on retroflexion. The prep was acceptable, approximately 85% of the luminal surface. Greater than 8 cm was spent removing the scope. The patient tolerated the procedure well. Zion Amin MD /[id number]
== END 2020-10-13 10:05 | disposition home or self-care (01) ==
LOC: JP.SDS 06:40
PROVIDERS: ATTEND Surgery
DX: Z12.11 Encounter for screening for malignant neoplasm of colon (principal); K63.5 Polyp of colon; I10 Essential (primary) hypertension; E11.9 Type 2 diabetes mellitus without complications; E78.00 Pure hypercholesterolemia, unspecified; N40.0 Benign prostatic hyperplasia without lower urinary tract symptoms; E66.09 Other obesity due to excess calories; Z68.37 Body mass index [BMI] 37.0-37.9, adult; Z01.812 Encounter for preprocedural laboratory examination; Z20.822 Contact with and (suspected) exposure to COVID-19; Z88.6 Allergy status to analgesic agent; Z88.8 Allergy status to other drugs, medicaments and biological substances; Z91.09 Other allergy status, other than to drugs and biological substances; Z87.891 Personal history of nicotine dependence; Z86.010 Personal history of colon polyps; Z79.84 Long term (current) use of oral hypoglycemic drugs; Z79.899 Other long term (current) drug therapy; Z98.890 Other specified postprocedural states
CPT/HCPCS: 45385; J2250; J2704; J7030; 88305

== ENCOUNTER 2020-10-14 07:45 | Emergency (ER) | payer MEDICAID ==
[2020-10-14] MEDS ORDERED: Ketorolac 30 MG/ML SDV IVPUSH ONE (08:32)
--- NOTE | 2020-10-14 08:36 | EDM.PDOC ---
ED HPI GENERAL MEDICAL PROBLEM - General Chief Complaint: Headache Stated Complaint: SHAKING, HEADACHE POST COLONOSCOPY Time Seen by Provider: 10/14/20 08:33 Source of Information: Reports: Patient History Limitations: Reports: No Limitations - History of Present Illness INITIAL COMMENTS - FREE TEXT/NARRATIVE: pt did a double prep for a colonoscopy. When he got home he was doing alot of shaking and felt fussy in his thinking. He had a nother similar episode after he went to sleep and this did awake him in the middle of the nite. pt is having loose stools when he drinks anything. He has been sweaty. He is definitely passing gas. Onset: Other ( started yesterday after the colonoscopy) Duration: Hour(s): Location: Reports: Abdomen, Generalized Associated Symptoms: Reports: Weakness, Other ( feels very shakey. ) Headache Pain Score (Numeric/FACES): 3 - Related Data Allergies Allergy/AdvReac Type Severity Reaction Status Date / Time adhesive tape Allergy Rash Verified 10/14/20 07:57 codeine Allergy Itching Verified 10/14/20 07:57 fentanyl Allergy Itching Verified 10/14/20 07:57 hydrocodone Allergy Cannot Verified 10/14/20 07:57 Remember ketorolac Allergy Itching Verified 10/14/20 07:57 latex Allergy Rash Verified 10/14/20 07:57 tramadol Allergy Itching Verified 10/14/20 07:57 tromantadine Allergy Itching Verified 10/14/20 07:57 Home Meds: Home Meds Amitriptyline [Elavil] 50 mg PO BID 12/28/17 [History] Cholecalciferol (Vitamin D3) [Vitamin D3] 2,000 unit PO DAILY 12/28/17 [History] Gabapentin [Neurontin] 800 mg PO TID 12/28/17 [History] Lisinopril 20 mg PO DAILY 12/28/17 [History] Melatonin 10 mg PO BEDTIME 12/28/17 [History] Metoprolol Succinate 25 mg PO DAILY 12/28/17 [History] Simvastatin [Zocor] 40 mg PO DAILY 12/28/17 [History] Tamsulosin [Flomax] 0.4 mg PO DAILY 12/28/17 [History] Citalopram [Citalopram HBr] 20 mg PO DAILY 12/20/18 [History] metFORMIN [Glucophage] 500 mg PO BIDMEALS 12/20/18 [History] polyethylene glycoL 3350 [Clearlax] 1 dose PO DAILY 12/20/18 [History] Amoxicillin 500 mg PO Q8H 10/10/20 [History] Carbamide Peroxide [Cank-Oxide] 4 drop MM QIDPCANDBED 10/10/20 [History] Cetirizine [ZyrTEC] 10 mg PO DAILY 10/10/20 [History] Citalopram Hydrobromide [Celexa] 40 mg PO DAILY 10/10/20 [History] DULoxetine [Cymbalta] 30 mg PO BID 10/10/20 [History] Fexofenadine [Denisse] 180 mg PO DAILY 10/10/20 [History] Fluticasone Propionate [Flonase] 2 spray NASBOTH DAILY 10/10/20 [History] Fluticasone Propionate [Flovent HFA 110 MCG] 2 puff INH BID 10/10/20 [History] Hydrocodone/Acetaminophen [Hydrocodon-Acetaminophen 5-325] 1 tab PO Q6H PRN 10/10/20 [History] Hydrophilic Ointment [Hydrophilic] 1 applic TOP DAILY 10/10/20 [History] Mupirocin Oint [Bactroban Oint] 1 applic TOP TID 10/10/20 [History] tiZANidine [Zanaflex] 2 mg PO Q6H PRN 10/10/20 [History] Past Medical History HEENT History: Reports: Other (See Below) Other HEENT History: nose cartilage repair/break Cardiovascular History: Reports: High Cholesterol, Hypertension, Other (See Below) Other Cardiovascular History: tachycardia Other Respiratory History: Merchant's esoughigitis Gastrointestinal History: Reports: Chronic Constipation, Irritable Bowel Syndrome, Other (See Below) Other Gastrointestinal History: barrets esophagus Genitourinary History: Reports: Prostate Disorder Musculoskeletal History: Reports: Back Pain, Chronic, Fracture, Neck Pain, Chronic, Osteoarthritis Other Musculoskeletal History: disc degenrative disease Neurological History: Reports: Migraines Psychiatric History: Reports: Depression Endocrine/Metabolic History: Reports: Diabetes, Type II, Hyperthyroidism, Osteopenia Dermatologic History: Reports: Eczema - Infectious Disease History Infectious Disease History: Reports: Chicken Pox - Past Surgical History GI Surgical History: Reports: Kurt Fundoplication Other GI Surgeries/Procedures: hiatal hernis rerpair Neurological Surgical History: Reports: C-Spine, Laminectomy, Spinal Fusion Other Neurological Surgeries/Procedures: lumbar surger dec 13 2018. neck surgery 5 weeks ago Musculoskeletal Surgical History: Reports: Other (See Below) Other Musculoskeletal Surgeries/Procedures:: fusion neck and lumbar area, diskectomy; carpal tunnel left Social & Family History - Family History Family Medical History: No Pertinent Family History - Tobacco Use Tobacco Use Status *Q: Former Tobacco User Years of Tobacco use: 15 Packs/Tins Daily: 2 Used Tobacco, but Quit: Yes Month/Year Tobacco Last Used: 05/2019 - Caffeine Use Caffeine Use: Reports: Coffee, Soda Other Caffeine Use: 12c. coffee/soda daily - Recreational Drug Use Recreational Drug Use: No ED ROS GENERAL - Review of Systems Review Of Systems: See Below Constitutional: Reports: Chills, Malaise, Diaphoresis, Other ( this has occured twice since the colonoscopy. ) HEENT: Reports: No Symptoms Respiratory: Reports: No Symptoms Cardiovascular: Reports: No Symptoms Endocrine: Reports: No Symptoms GI/Abdominal: Reports: Diarrhea : Reports: No Symptoms Musculoskeletal: Reports: No Symptoms Skin: Reports: No Symptoms Neurological: Reports: Weakness - Physical Exam Exam: See Below Text/Narrative:: pt has had 2 episodes of marked shhaking and chilling. He He is having stools and is passing gas. states this all occurred after he had the colonosopy yesterday. He did have some electrolyte problems after his previous colonoscopy. Exam Limited By: No Limitations General Appearance: Alert, Anxious, Moderate Distress, Other (pt is having a sig headache and this also started after the colonoscopy. ) Ears: Normal TMs Nose: Normal Inspection Throat/Mouth: Normal Inspection Head Exam: Atraumatic Neck: Normal Inspection Respiratory/Chest: No Respiratory Distress Cardiovascular: Tachycardia GI/Abdominal: Other (pt has tenderness in the rt lower abdoman. ) (Male) Exam: Deferred Rectal (Males) Exam: Deferred Neuro Exam (Abbreviated): Alert, Oriented, Normal Cognition Back Exam: Normal Inspection Extremities: Normal Inspection Psychiatric: Anxious Course - Vital Signs Last Recorded V/S: Last Vital Signs Temp 36.4 C 10/14/20 11:17 Pulse 84 10/14/20 11:17 Resp 9 L 10/14/20 11:17 BP 110/63 10/14/20 11:17 Pulse Ox 95 10/14/20 11:17 Orthostatic Blood Pressure [ 114/64 Standing] Orthostatic Blood Pressure [ 110/63 Sitting] - Orders/Labs/Meds Orders: Active Orders 24 hr Category Date Time Status EKG Documentation Completion [RC] ASDIRECTED Care 10/14/20 09:48 Active Sodium Chloride 0.9% [Normal Saline] 1,000 ml Med 10/14/20 08:45 Active IV ASDIRECTED Sodium Chloride 0.9% [Normal Saline] 1,000 ml Med 10/14/20 09:15 Active IV ASDIRECTED EKG 12 Lead [EK] Routine Ther 10/14/20 09:48 Ordered Medication Orders Sodium Chloride (Normal Saline) 1,000 mls @ 999 mls/hr IV ASDIRECTED SHEKHAR Last Admin: 10/14/20 08:43 Dose: 999 mls/hr Documented by: ZACHARY Sodium Chloride (Normal Saline) 1,000 mls @ 999 mls/hr IV ASDIRECTED SHEKHAR Last Admin: 10/14/20 09:58 Dose: 999 mls/hr Documented by: ZACHARY Labs: Laboratory Tests 10/14/20 10/14/20 10/14/20 Range/Units 08:44 08:44 09:49 WBC 7.4 (4.5-11.0) K/uL RBC 4.28 L (4.30-5.90) M/uL Hgb 12.4 (12.0-15.0) g/dL Hct 37.5 L (40.0-54.0) % MCV 88 (80-98) fL MCH 29 (27-31) pg MCHC 33 (32-36) % Plt Count 221 (150-400) K/uL Neut % (Auto) 71 H (36-66) % Lymph % (Auto) 18 L (24-44) % [place] % (Auto) 10 H (2-6) % Eos % (Auto) 1 L (2-4) % Baso % (Auto) 0 (0-1) % Sodium 136 L (140-148) mmol/L Potassium 3.7 (3.6-5.2) mmol/L Chloride 99 L (100-108) mmol/L Carbon Dioxide 23 (21-32) mmol/L Anion Gap 17.7 H (5.0-14.0) mmol/L BUN 10 (7-18) mg/dL Creatinine 1.0 (0.8-1.3) mg/dL Est Cr Clr Drug Dosing 92.03 mL/min Estimated GFR (MDRD) > 60 (>60) Glucose 125 H (74-106) mg/dL POC Glucose (74-106) MG/DL Calcium 9.0 (8.5-10.1) mg/dL Total Bilirubin 0.4 (0.2-1.0) mg/dL AST 59 H (15-37) U/L ALT 85 H (12-78) U/L Alkaline Phosphatase 86 (46-116) U/L Troponin I < 0.017 (0.000-0.056) ng/mL Total Protein 6.4 (6.4-8.2) g/dL Albumin 3.4 (3.4-5.0) g/dL Globulin 3.0 (2.3-3.5) g/dL Albumin/Globulin Ratio 1.1 L (1.2-2.2) 10/14/20 Range/Units 10:53 WBC (4.5-11.0) K/uL RBC (4.30-5.90) M/uL Hgb (12.0-15.0) g/dL Hct (40.0-54.0) % MCV (80-98) fL MCH (27-31) pg MCHC (32-36) % Plt Count (150-400) K/uL Neut % (Auto) (36-66) % Lymph % (Auto) (24-44) % [place] % (Auto) (2-6) % Eos % (Auto) (2-4) % Baso % (Auto) (0-1) % Sodium (140-148) mmol/L Potassium (3.6-5.2) mmol/L Chloride (100-108) mmol/L Carbon Dioxide (21-32) mmol/L Anion Gap (5.0-14.0) mmol/L BUN (7-18) mg/dL Creatinine (0.8-1.3) mg/dL Est Cr Clr Drug Dosing mL/min Estimated GFR (MDRD) (>60) Glucose (74-106) mg/dL POC Glucose 121 H (74-106) MG/DL Calcium (8.5-10.1) mg/dL Total Bilirubin (0.2-1.0) mg/dL AST (15-37) U/L ALT (12-78) U/L Alkaline Phosphatase (46-116) U/L Troponin I (0.000-0.056) ng/mL Total Protein (6.4-8.2) g/dL Albumin (3.4-5.0) g/dL Globulin (2.3-3.5) g/dL Albumin/Globulin Ratio (1.2-2.2) Meds: Medications Generic Name Dose Route Start Last Admin Trade Name Freq PRN Reason Stop Dose Admin Sodium Chloride 1,000 mls @ 999 mls/hr 10/14/20 08:45 10/14/20 08:43 Normal Saline IV 999 mls/hr ASDIRECTED SHEKHAR Administration Sodium Chloride 1,000 mls @ 999 mls/hr 10/14/20 09:15 10/14/20 09:58 Normal Saline IV 999 mls/hr ASDIRECTED SHEKHAR Administration Discontinued Medications Generic Name Dose Route Start Last Admin Trade Name Horacioq PRN Reason Stop Dose Admin Duloxetine HCl 30 mg 10/14/20 09:09 10/14/20 09:24 Duloxetine 30 Mg Cap PO 10/14/20 09:10 30 mg ONETIME ONE Administration Hydromorphone HCl 0.5 mg 10/14/20 09:09 10/14/20 09:24 Hydromorphone 0.5 Mg/0.5 Ml Syringe IVPUSH 10/14/20 09:10 0.5 mg ONETIME ONE Administration Ketorolac Tromethamine 30 mg 10/14/20 08:32 10/14/20 08:43 Ketorolac 30 Mg/Ml Sdv IVPUSH 10/14/20 08:33 30 mg ONETIME ONE Administration Lorazepam 0.5 mg 10/14/20 09:09 10/14/20 09:24 Lorazepam 2 Mg/Ml Sdv IVPUSH 10/14/20 09:10 0.5 mg ONETIME ONE Administration Lorazepam 0.5 mg 10/14/20 09:49 10/14/20 10:21 Lorazepam 2 Mg/Ml Sdv IVPUSH 10/14/20 09:50 0.5 mg ONETIME ONE Administration - Re-Assessments/Exams Free Text/Narrative Re-Assessment/Exam: 10/14/20 09:52 pt has been given 2 liters of fluid. . He has receuved ativan dilaudid and gambino dol. 10/14/20 10:42 pt is gradually improving. He had a normal ekg and trop. He is feeling much better. 10/14/20 11:27 pt is looking much better. He has a full liquid tray and doing ok with that. His bp is on the low side will decrease his lisinopril Departure - Departure Time of Disposition: 11:28 Disposition: Home, Self-Care 01 Condition: Fair Clinical Impression: Hypotension, Dehydration - Discharge Information Referrals: Kerry Sotelo PA [Primary Care Provider] - Forms: ED Department Discharge Care Plan Goals: push fluids, low activity today. decrease lisinopril 1/2 tab daily--10 mg, appt with Kerry Yee in 4-5 days. Sepsis Event Note (ED) - Evaluation Sepsis Screening Result: No Definite Risk - Focused Exam Vital Signs: Vital Signs Temp Temp Pulse Resp BP Pulse Ox 10/14/20 11:17 36.4 C 36.3 C 84 9 L 110/63 95 10/14/20 09:54 77 16 125/66 94 L 10/14/20 09:32 81 20 117/69 96 10/14/20 08:11 36.5 C 97 20 122/71 95 - My Orders Last 24 Hours: My Active Orders 10/14/20 08:45 Sodium Chloride 0.9% [Normal Saline] 1,000 ml IV ASDIRECTED 10/14/20 09:15 Sodium Chloride 0.9% [Normal Saline] 1,000 ml IV ASDIRECTED 10/14/20 09:48 EKG Documentation Completion [RC] ASDIRECTED EKG 12 Lead [EK] Routine - Assessment/Plan Last 24 Hours: My Active Orders 10/14/20 08:45 Sodium Chloride 0.9% [Normal Saline] 1,000 ml IV ASDIRECTED 10/14/20 09:15 Sodium Chloride 0.9% [Normal Saline] 1,000 ml IV ASDIRECTED 10/14/20 09:48 EKG Documentation Completion [RC] ASDIRECTED EKG 12 Lead [EK] Routine
[2020-10-14] MEDS ORDERED: Sodium Chloride 0.9% 1,000 ML IV SCH ×2 (08:45→09:15)
[2020-10-14] MEDS ORDERED: HYDROmorphone 0.5 MG/0.5 ML Syringe IVPUSH ONE (09:09)
[2020-10-14] MEDS ORDERED: DULoxetine 30 MG Cap PO ONE (09:09)
[2020-10-14] MEDS ORDERED: LORazepam 2 MG/ML SDV IVPUSH ONE ×2 (09:09→09:49)
== END 2020-10-14 12:11 | disposition home or self-care (01) ==
LOC: JP.ED 07:45
DX: I95.9 Hypotension, unspecified (principal); E86.0 Dehydration; E11.9 Type 2 diabetes mellitus without complications; E78.00 Pure hypercholesterolemia, unspecified; I10 Essential (primary) hypertension; N42.9 Disorder of prostate, unspecified; E03.9 Hypothyroidism, unspecified; Z79.899 Other long term (current) drug therapy; Z91.040 Latex allergy status; Z88.5 Allergy status to narcotic agent; Z88.8 Allergy status to other drugs, medicaments and biological substances; Z79.84 Long term (current) use of oral hypoglycemic drugs; Z91.048 Other nonmedicinal substance allergy status; Z88.4 Allergy status to anesthetic agent; Z88.6 Allergy status to analgesic agent; Z87.891 Personal history of nicotine dependence
CPT/HCPCS: 36415; 80053; 82962; 84484; 85025; 93005; 96374; 96375; 96376; 99284; A9270; J1170; J1885; J2060; J7030

== ENCOUNTER 2020-12-23 16:19 | Emergency (ER) | payer MEDICAID ==
[2020-12-23] MEDS ORDERED: HYDROmorphone 0.5 MG/0.5 ML Syringe IM ONE (18:26)
[2020-12-23] MEDS ORDERED: Gabapentin 300 MG Cap PO ONE (18:27)
--- NOTE | 2020-12-23 18:33 | EDM.PDOC ---
ED HPI GENERAL MEDICAL PROBLEM - General Chief Complaint: Lower Extremity Injury/Pain Stated Complaint: BACK AND LEFT LEG PAIN Time Seen by Provider: 12/23/20 18:15 Source of Information: Reports: Patient, Old Records History Limitations: Reports: No Limitations - History of Present Illness INITIAL COMMENTS - FREE TEXT/NARRATIVE: 50 yo male is here with pain radiating from his low back down his L leg. Pain is worse with coughing or sneezing. He has known degenerative lumbar spinal dz. He says this began this past Tuesday. He saw orthopedics recently thinking this was a hip problem, but the orthopedist felt it was more likely from his spine. Kerry Lunsford is his primary, he didn't talk to her yet about this. He goes to a pain clinic and is prescribed oxycodone 10mg qid, but they told him to come to the ER when he called them today. He lives with his son who drove him to the ER. He has a walker at home. 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 SPECIALIST: Reports: Other (see below) (oxycodone 10 mg) lower back Pain Score (Numeric/FACES): 6 - Related Data Allergies Allergy/AdvReac Type Severity Reaction Status Date / Time adhesive tape Allergy Rash Verified 12/23/20 17:03 codeine Allergy Itching Verified 12/23/20 17:03 fentanyl Allergy Itching Verified 12/23/20 17:03 hydrocodone Allergy Cannot Verified 12/23/20 17:03 Remember ketorolac Allergy Itching Verified 12/23/20 17:03 latex Allergy Rash Verified 12/23/20 17:03 oxycodone Allergy Rash Verified 12/23/20 19:27 tramadol Allergy Itching Verified 12/23/20 17:03 tromantadine Allergy Itching Verified 12/23/20 17:03 Home Meds: Home Meds Amitriptyline [Elavil] 1,000 mg PO BEDTIME 12/28/17 [History] Cholecalciferol (Vitamin D3) [Vitamin D3] 2,000 unit PO DAILY 12/28/17 [History] Gabapentin [Neurontin] 800 mg PO TID 12/28/17 [History] Lisinopril 10 mg PO DAILY 12/28/17 [History] Metoprolol Succinate 25 mg PO DAILY 12/28/17 [History] Simvastatin [Zocor] 40 mg PO DAILY 12/28/17 [History] Tamsulosin [Flomax] 0.8 mg PO BEDTIME 12/28/17 [History] Citalopram [Citalopram HBr] 20 mg PO DAILY 12/20/18 [History] metFORMIN [Glucophage] 1,000 mg PO BIDMEALS 12/20/18 [History] polyethylene glycoL 3350 [Clearlax] 1 dose PO DAILY 12/20/18 [History] Carbamide Peroxide [Cank-Oxide] 4 drop MM [id number] 10/10/20 [History] Cetirizine [ZyrTEC] 10 mg PO DAILY 10/10/20 [History] Citalopram Hydrobromide [Celexa] 40 mg PO DAILY 10/10/20 [History] DULoxetine [Cymbalta] 30 mg PO BID 10/10/20 [History] Fexofenadine [Denisse] 180 mg PO DAILY 10/10/20 [History] Fluticasone Propionate [Flonase] 2 spray NASBOTH DAILY 10/10/20 [History] Hydrophilic Ointment [Hydrophilic] 1 applic TOP DAILY 10/10/20 [History] Mupirocin Oint [Bactroban Oint] 1 applic TOP TID 10/10/20 [History] oxyCODONE 10 mg PO Q6HR 12/23/20 [History] Past Medical History HEENT History: Reports: Impaired Vision, Other (See Below) Other HEENT History: nose cartilage repair/break Cardiovascular History: Reports: High Cholesterol, Hypertension, Other (See Below) Other Cardiovascular History: tachycardia Other Respiratory History: Merchant's esoughigitis Gastrointestinal History: Reports: Chronic Constipation, Irritable Bowel Syndrome, Other (See Below) Other Gastrointestinal History: barrets esophagus Genitourinary History: Reports: Prostate Disorder Musculoskeletal History: Reports: Back Pain, Chronic, Fracture, Neck Pain, Chronic, Osteoarthritis Other Musculoskeletal History: disc degenrative disease Neurological History: Reports: Migraines Psychiatric History: Reports: Anxiety, Depression Endocrine/Metabolic History: Reports: Diabetes, Type II, Hyperthyroidism, Obesity/BMI 30+, Osteopenia Dermatologic History: Reports: Eczema - Infectious Disease History Infectious Disease History: Reports: Chicken Pox, Measles, Mumps - Past Surgical History Head Surgeries/Procedures: Reports: None Respiratory Surgical History: Reports: None GI Surgical History: Reports: Kurt Fundoplication Other GI Surgeries/Procedures: hiatal hernis rerpair Endocrine Surgical History: Reports: None Neurological Surgical History: Reports: C-Spine, Laminectomy, Spinal Fusion Other Neurological Surgeries/Procedures: lumbar surger dec 13 2018. neck surgery Musculoskeletal Surgical History: Reports: Other (See Below) Other Musculoskeletal Surgeries/Procedures:: fusion neck and lumbar area, diskectomy; carpal tunnel left Dermatological Surgical History: Reports: None Social & Family History - Family History Family Medical History: No Pertinent Family History - Tobacco Use Tobacco Use Status *Q: Former Tobacco User Used Tobacco, but Quit: Yes Month/Year Tobacco Last Used: 2014 Second Hand Smoke Exposure: No - Caffeine Use Caffeine Use: Reports: Coffee, Soda Other Caffeine Use: 12c. coffee/soda daily - Recreational Drug Use Recreational Drug Use: No Review of Systems - Review of Systems Review Of Systems: See Below Constitutional: Reports: No Symptoms Musculoskeletal: Reports: Back Pain, Leg Pain (left) Skin: Reports: No Symptoms Neurological: Reports: Other (burning and shooting pain down left leg) ED EXAM, GENERAL - Physical Exam Exam: See Below Exam Limited By: No Limitations General Appearance: Alert, WD/WN, No Apparent Distress, Obese Eye Exam: Bilateral Eye: Normal Inspection Ears: Normal External Exam, Normal Canal, Hearing Grossly Normal Ear Exam: Bilateral Ear: Auricle Normal, Canal Normal Nose: Normal Inspection, No Blood Throat/Mouth: Normal Inspection, Normal Lips, Normal Voice, No Airway Compromise Head: Atraumatic, Normocephalic Neck: Normal Inspection Respiratory/Chest: No Respiratory Distress, Lungs Clear, Normal Breath Sounds, No Accessory Muscle Use Cardiovascular: Regular Rate, Rhythm Back Exam: Other (tender L lumbar spine and L sciatic notch) Extremities: Normal Inspection, Non-Tender, No Pedal Edema Neurological: Alert, Oriented, CN II-XII Intact, Normal Cognition, Other (increased pain down his leg with straight leg raising on left) Psychiatric: Normal Affect, Normal Mood Skin Exam: Warm, Dry, Intact, Normal Color, No Rash Course - Vital Signs Last Recorded V/S: Last Vital Signs Temp 36.2 C 12/23/20 16:59 Pulse 94 12/23/20 19:39 Resp 20 12/23/20 19:39 BP 144/91 H 12/23/20 19:39 Pulse Ox 97 12/23/20 19:39 - Orders/Labs/Meds Meds: Medications Discontinued Medications Generic Name Dose Route Start Last Admin Trade Name Scott PRN Reason Stop Dose Admin Diphenhydramine HCl 50 mg 12/23/20 19:28 12/23/20 19:36 Diphenhydramine 25 Mg Cap PO 12/23/20 19:29 50 mg ONETIME ONE Administration Gabapentin 300 mg 12/23/20 18:27 12/23/20 18:34 Gabapentin 300 Mg Cap PO 12/23/20 18:28 300 mg ONETIME ONE Administration Hydromorphone HCl 1.5 mg 12/23/20 18:26 12/23/20 18:36 Hydromorphone 0.5 Mg/0.5 Ml Syringe IM 12/23/20 18:27 1.5 mg ONETIME ONE Administration Ondansetron HCl 4 mg 12/23/20 19:28 12/23/20 19:35 Ondansetron 4 Mg Tab.Dis PO 12/23/20 19:29 4 mg ONETIME ONE Administration Oxycodone HCl 10 mg 12/23/20 19:17 12/23/20 19:36 Oxycodone 5 Mg Tab PO 12/23/20 19:18 10 mg ONETIME ONE Administration - Re-Assessments/Exams Free Text/Narrative Re-Assessment/Exam: 12/23/20 19:56 feels good enough now, wants to go home with his son. Departure - Departure Time of Disposition: 20:00 Disposition: Home, Self-Care 01 Condition: Fair Clinical Impression: Lumbar radicular pain - Discharge Information *PRESCRIPTION DRUG MONITORING PROGRAM REVIEWED*: No *COPY OF PRESCRIPTION DRUG MONITORING REPORT IN PATIENT [place]: No Instructions: Pinched Nerve Referrals: Kerry Sotelo PA [Primary Care Provider] - Forms: ED Department Discharge Additional Instructions: Contact your pain doctors and family doctor in the morning. No driving. Sepsis Event Note (ED) - Evaluation Sepsis Screening Result: No Definite Risk - Focused Exam Vital Signs: Vital Signs Temp Pulse Resp BP Pulse Ox 12/23/20 19:39 94 20 144/91 H 97 12/23/20 17:31 92 118/80 98 12/23/20 16:59 36.2 C 96 18 130/93 H 95 12/23/20 16:56 36.2 C 96 18 130/93 H 95
[2020-12-23] MEDS ORDERED: oxyCODONE 5 MG Tab PO ONE (19:17)
[2020-12-23] MEDS ORDERED: diphenhydrAMINE 25 MG Cap PO ONE (19:28)
[2020-12-23] MEDS ORDERED: Ondansetron 4 MG Tab.DIS PO ONE (19:28)
== END 2020-12-23 20:18 | disposition home or self-care (01) ==
LOC: JP.ED 16:19
DX: M54.16 Radiculopathy, lumbar region (principal); E78.00 Pure hypercholesterolemia, unspecified; I10 Essential (primary) hypertension; N42.9 Disorder of prostate, unspecified; E66.9 Obesity, unspecified; Z68.39 Body mass index [BMI] 39.0-39.9, adult; Z91.048 Other nonmedicinal substance allergy status; Z88.5 Allergy status to narcotic agent; Z88.4 Allergy status to anesthetic agent; Z88.6 Allergy status to analgesic agent; Z91.040 Latex allergy status; Z79.84 Long term (current) use of oral hypoglycemic drugs; Z79.899 Other long term (current) drug therapy; Z87.891 Personal history of nicotine dependence
CPT/HCPCS: 96372; 99283; A9270; J1170